=== PATIENT | male | born 1950 | race Caucasian/White ===

== ENCOUNTER 2018-12-06 10:37 | Emergency (ER) | payer MEDICARE ==
--- NOTE | 2018-12-06 11:20 | REP ---
CT Head without contrast HISTORY: Head injury COMPARISON: None There is no intraparenchymal hemorrhage, acute infarct, mass or midline shift. The ventricular system is normal in appearance. There is no extra cerebral collection. There is no fracture. The visualized sinuses are clear. A 3 mm metallic density is present in the subcutaneous tissue overlying the left temporal bone. IMPRESSION: There is no intracranial lesion. Electronically Signed by Porfirio Jiang MD 12/06/2018 11:11 A
[2018-12-06] MEDS ORDERED: MECL12.575 PO (11:45)
[2018-12-06] MEDS ORDERED: ONDA4TAB6 PO (11:45)
[2018-12-06 11:50] VITALS: BP 150/96
== END 2018-12-06 11:58 | disposition home or self-care (01) ==
LOC: M ED 10:37
DX: F07.81 Postconcussional syndrome (principal); W00.0XXA Fall on same level due to ice and snow, initial encounter; E11.9 Type 2 diabetes mellitus without complications; I10 Essential (primary) hypertension